=== PATIENT | female | born 1945 | race Caucasian/White ===

== ENCOUNTER → 2023-06-13 08:32 | Outpatient (REF) | payer MEDICARE, OTHER, SELFPAY ==
[2023-06-13 09:05] LABS: Urine Albumin Negative (Neg - Trace); Urine Bilirubin Negative (Negative); Urine Character Clear (Clear); Urine Glucose Negative (Negative); Urine Ketone Negative (Negative); Urine Leukocyte Trace (Negative); Urine Nitrite Negative (Negative); Urine Occult Blood Negative (Negative); Urine Urobilinogen Negative (Neg - 1+)
[2023-06-13 09:11] LABS: % Basophils 0.8 % (0-2); % Eosinophils 1.8 % (0-6); % Immature Granulocytes 0.2 % (0-0.5); % Lymphocytes 40.8 % (20.5-51.1); % Monocytes 6.5 % (1.7-9.3); % Neutrophils 49.9 % (42.2-75.2); Absolute Eosinophils 0.1 10^3/uL (0-0.7); Absolute Lymphocytes 2.1 10^3/uL (1.2-3.4); Absolute Monocytes 0.3 10^3/uL (0.1-0.6); Absolute Neutrophils 2.5 10^3/uL (1.4-6.5); Hematocrit 37.9 % (37.0-47.0); Hemoglobin 12.6 g/dL (12.0-16.0); Mean Corp Hgb Conc. 33.2 g/dL (33.0-37.0); Mean Corpuscular Hgb 30.4 pg (27.0-31.0); Mean Corpuscular Volume 91.3 fL (81.0-99.0); Mean Platelet Volume 9.2 fL (7.4-10.4); Nucleated Red Blood Cells % 0 %; Platelet Count 240 10^3/uL (130-400); Red Blood Cell Count 4.15 10^6/uL (4.20-5.40); Red Cell Dist. Width 13.4 % (11.5-14.5); White Blood Cell Count 5.1 10^3/uL (4.8-10.8)
[2023-06-13 09:16] LABS: Urine Red Blood Cell 0-2 /HPF (0-2); Urine White Cell 0-2 /HPF (0-5)
[2023-06-13 09:40] LABS: ALT (SGPT) 27 U/L (0-35); AST (SGOT) 36 U/L (14-36); Alkaline Phosphatase 71 U/L (38-126); Blood Urea Nitrogen 8 mg/dl (7-17); Calcium 8.9 mg/dl (8.4-10.2); Carbon Dioxide 27 mmol/L (22-30); Chloride 102 mmol/L (98-107); Glucose 93 mg/dl (70-99); Potassium 4.4 mmol/L (3.5-5.1); Sodium 134 mmol/L (135-145); Total Bilirubin 0.9 mg/dl (0.2-1.3); Total Protein 6.6 g/dl (6.3-8.2); eGFR > 60.00
[2023-06-13 10:04] LABS: TSH Reflex To Free T4 2.31 uIU/ml (0.47-4.68)
== END ==
LOC: REG 08:32
PROVIDERS: ATTENDING PHYSICIAN Family Medicine
DX: R39.89 Other symptoms and signs involving the genitourinary system (principal); R53.83 Other fatigue
CPT/HCPCS: 36415; 80053; 81003; 81015; 84443; 85025

== ENCOUNTER → 2023-09-21 14:18 | Outpatient (REF) | payer MEDICARE, OTHER, SELFPAY | LOC: WDC 14:18 | PROVIDERS: ATTENDING PHYSICIAN Family Medicine | DX: Z13.820 Encounter for screening for osteoporosis (principal); Z12.31 Encounter for screening mammogram for malignant neoplasm of breast; Z78.0 Asymptomatic menopausal state | CPT/HCPCS: 77063; 77067 ==

== ENCOUNTER → 2023-09-25 08:39 | Outpatient (REF) | payer MEDICARE, OTHER, SELFPAY ==
[2023-09-25 10:26] LABS: Free T3 3.11 pg/ml (2.77-5.27); Free T4 0.86 ng/dl (0.78-2.19)
[2023-09-25 10:40] LABS: Cortisol, Random 11.8 ug/dl; TSH 2.15 uIU/ml (0.47-4.68)
[2023-09-25 12:10] LABS: Glycohemoglobin (HgbA1c) 5.7 % (4.0-5.6)
[2023-09-26 06:23] LABS: Thyroglobulin Antibodies <0.9 IU/mL (0.0-4.0); Thyroid Peroxidase Ab (TPO) 0.9 IU/mL (0.0-9.0)
== END ==
LOC: REG 08:39
PROVIDERS: ATTENDING PHYSICIAN Family Medicine
DX: R53.83 Other fatigue (principal)
CPT/HCPCS: 36415; 82533; 83036; 84439; 84443; 84481; 86376; 86800

== ENCOUNTER → 2023-12-27 07:58 | Outpatient (REF) | payer MEDICARE, OTHER, SELFPAY ==
[2023-12-27 08:51] LABS: % Basophils 0.6 % (0-2); % Eosinophils 1.9 % (0-6); % Immature Granulocytes 0.2 % (0-0.5); % Lymphocytes 39.3 % (20.5-51.1); % Monocytes 6.6 % (1.7-9.3); % Neutrophils 51.4 % (42.2-75.2); Absolute Eosinophils 0.1 10^3/uL (0-0.7); Absolute Lymphocytes 1.8 10^3/uL (1.2-3.4); Absolute Monocytes 0.3 10^3/uL (0.1-0.6); Absolute Neutrophils 2.4 10^3/uL (1.4-6.5); Hematocrit 39.6 % (37.0-47.0); Hemoglobin 13.4 g/dL (12.0-16.0); Mean Corp Hgb Conc. 33.8 g/dL (33.0-37.0); Mean Corpuscular Hgb 30.5 pg (27.0-31.0); Mean Platelet Volume 8.6 fL (7.4-10.4); Nucleated Red Blood Cells % 0 %; Platelet Count 230 10^3/uL (130-400); Red Cell Dist. Width 12.7 % (11.5-14.5); Urine Albumin Negative (Neg - Trace); Urine Bilirubin Negative (Negative); Urine Character Clear (Clear); Urine Color Yellow; Urine Glucose Negative (Negative); Urine Ketone Negative (Negative); Urine Leukocyte Trace (Negative); Urine Nitrite Negative (Negative); Urine Occult Blood Negative (Negative); Urine Urobilinogen Negative (Neg - 1+); White Blood Cell Count 4.7 10^3/uL (4.8-10.8)
[2023-12-27 09:10] LABS: Urine Amorphous Seen; Urine Red Blood Cell 0-2 /HPF (0-2); Urine White Cell 0-2 /HPF (0-5)
[2023-12-27 09:11] LABS: Urine Mucus Moderate
[2023-12-27 09:28] LABS: C-Reactive Protein < 5.00 mg/L (0.0-10.00)
[2023-12-27 10:42] LABS: Erythrocyte Sed Rate 8 mm/hour (0-20)
[2023-12-27 11:11] LABS: ALT (SGPT) 22 U/L (0-35); AST (SGOT) 31 U/L (14-36); Albumin 4.5 g/dl (3.5-5.0); Alkaline Phosphatase 63 U/L (38-126); Blood Urea Nitrogen 7 mg/dl (7-17); Calcium 9.3 mg/dl (8.4-10.2); Carbon Dioxide 27 mmol/L (22-30); Chloride 99 mmol/L (98-107); Glucose 91 mg/dl (70-99); Potassium 4.1 mmol/L (3.5-5.1); Sodium 137 mmol/L (135-145); Total Bilirubin 0.8 mg/dl (0.2-1.3); eGFR > 60.00
== END ==
LOC: REG 07:58
PROVIDERS: ATTENDING PHYSICIAN Family Medicine
DX: R14.0 Abdominal distension (gaseous) (principal); K59.09 Other constipation; R63.4 Abnormal weight loss
CPT/HCPCS: 36415; 74019; 80053; 81003; 81015; 85025; 85652; 86140

== ENCOUNTER → 2023-12-28 12:31 | Outpatient (REF) | payer MEDICARE, OTHER, SELFPAY | LOC: REG 12:31 | PROVIDERS: ATTENDING PHYSICIAN Family Medicine | DX: R63.4 Abnormal weight loss (principal); R14.0 Abdominal distension (gaseous) | CPT/HCPCS: 87328; 87329 ==

== ENCOUNTER 2024-06-01 05:10 | Observation (INO) | payer MEDICARE, OTHER, SELFPAY ==
[2024-06-01] VITALS (13 sets, daily range): BP systolic 123–161; BP diastolic 68–94; PULSE 77–83; O2SAT 92
--- NOTE | 2024-06-01 01:48 | ED.GENMED ---
History of Present Illness
General
Chief Complaint: Headache
Time Seen by Provider: 06/01/24 01:38
History of Present Illness
History of Present Illness:
This pt is a 79 yr old female with a hx of ocular migraine who notes onset of gradual 'ocular migraine' at approx 8pm, characterized by 'zig zags' in visula field for 20-30 min, followed by a 'dull' h/a. As she usually does, she lay down to rest.
She awoke at 11pm,and noted that h/a was worse, on L side, frontal, withou exac/relieving factors. No radiation. Described as 'pressure'. She says for about 10 min or so, she also 'couldnt think of any words'... She denies numb/tingling, slurred
speech, trauma, fall, fever, hcange in visions, cp, sob or other complnts. (When asked, she does report mild post neck velazquez also).
Past History
Past History
ED Past Medical History: Asthma, CVA ('TIA'), GERD, Hypercholesterolemia, Psychiatric (Generalized anxiety disorder) and Other (Diverticulitis, hysterectomy, osteoporosis, Lyme disease, COVID-19 2020 and 2022, ocular migraine)
ED Past Surgical History: Appendectomy, Gynecological (Transabdominal hysterectomy), Orthopedic (ORIF right wrist), Tonsilectomy and Other (Cataract extractions bilaterally)
Social History
Tobacco: Non-smoker
Alcohol: Occasional
Drug: None
Personal:
Living: with family
Family History
Family History: Other (Mother with hypoglycemia breast cancer. Grandmother with diabetes, father with coronary disease)
Phy Exam
Physical Exam
Physical Exam:
AAO times three in nad
PERRL, EOMI, no nystagmus, no phpotophobia
mmm ,o/pc st[place]
neck supple
hrt rrr
lung cta
abd soft, nt, nd
extrem no c/c/e
psych appropriate
skin warm and dry
neuro cn 2-12 intact, nih = 0, f to n nl, motor 5/5, sens intact, visual ridley intact
Course
Orders/Labs/Results
Orders:
Orders
06/01/24 01:47
CT Head W/o Iv Contrast Urgent
Comment:
Reason For Exam: L sided h/a
Cardiac Monitoring- Treatment ONCE
0.9% Sodium Chloride 1000 ml [Nss] 1,000 ml IV BOLUS
Diphenhydramine [Benadryl] 25 mg IV NOW STA
Metoclopramide [Reglan] 10 mg IV NOW STA
06/01/24 01:49
Complete Blood Count/With Diff Urgent
06/01/24 02:37
Comprehensive Metabolic Panel Urgent
06/01/24 04:50
Admit/Transfer Patient As Directed
Co-Sign Provider:
Level of Care: Observation services
Assign to:: Telemetry
Physician / Group: Damian
Diagnosis: Migraine, r/o CVA
Reason for Telemetry: CVA/TIA
Date to Stop Telemetry: 06/04/24
Time to Stop Telemetry: 11:00
Code Status As Directed
Resuscitation Status: Full Code
PRN Pain Medication Management As Directed
May give lesser potent ordered pain med per pt: Yes
preference::
Protocol:: Medication orders for pain may be administered in a
manner that supports deferring to patient preference
when the pt is:
- Requesting an ordered lesser potent pain medication.
Least to most potent pain medications are defined
as: acetaminophen < NSAID < tramadol < opioids
(morphine, oxycodone, hydromorphone).
- Requesting a lesser dose of the same medication IF
ORDERED.
- Requesting a less intrusive route of administration
if both routes are prescribed by the provider (PO <
IV).
06/01/24 Breakfast
Regular
At Your Request: Full Participation
06/01/24 06:37
Acetaminophen [Tylenol] 650 mg PO Q4HPRN PRN
06/01/24 06:37
Consult Notification Routine
Specialty to Notify: Neurology
Date consulting provider notified: 06/01/24
Time consulting provider notified: 07:38
Notified:: Provider
NEUROLOGY CONSULT Routine
Consulting Provider: Jimmy Anderson
Was physician already notified: No
Reason for consult: Migraine, r/o CVA
Activity As Directed
Activity Level: Ambulate
With Assistance
EKG with chest pain [ECG as needed] As Directed
ECG as needed for:: Chest Pain
I/O [Intake/ Output] As Directed
Frequency: Per unit guidelines
NIH Stroke Scale As Directed
Neurological Checks As Directed
Frequency: q4h
Orthostatic Vital Signs As Directed
Orthostatic VS Frequency: BID
Pneumatic Compression Sleeves As Directed
Type: Knee high
Vital Signs As Directed
Frequency: Per unit guidelines
Oxygen Therapy [O2 Therapy] [RESP] Routine
Titrate/Wean O2 to maintain O2 sat greater than (%): 94
Ot Eval And Treat Routine
PT Consult [Pt Eval And Treat] Routine
Activity Level: Ambulate
With Assistance
Speech Therapy Eval & Treat Routine
DX Deep Vein Thrombosis Video Routine
06/01/24 06:41
Glycohemoglobin (HgbA1c) Routine
TSH Reflex To Free T4 Routine
06/01/24 08:00
Aspirin Chewable [Low Strength Aspirin] 81 mg PO DAILY
06/04/24 11:00
DC Protocol for Telemetry ONCE
Abnormal Lab Results
06/01/24
02:37
Creatinine 0.5 L mg/dL
(0.6-1.0)
Glucose 108 H mg/dl
(70-99)
Calcium 7.9 L mg/dl
(8.4-10.2)
Total Protein 6.1 L g/dl
(6.3-8.2)
06/01/24 01:49
06/01/24 02:37
Vital Signs
Initial and Last Documented VS:
Initial Vital Signs
Temp Pulse Resp BP Pulse Ox
99.3 F 83 20 161/84 100
06/01/24 01:36 06/01/24 01:36 06/01/24 01:36 06/01/24 01:36 06/01/24 01:36
Last Documented Vital Signs
Temp Pulse Resp BP Pulse Ox
98.5 F 80 18 130/68 99
06/01/24 15:00 06/01/24 13:00 06/01/24 15:00 06/01/24 15:00 06/01/24 15:00
*Critical Care Note
Total Time (30-74mins, 75-104mins- exclusive of procedures): Not Applicable
Update Note
Update Note:
Patient presents to the Emergency Department with headache nausea and vomiting
Number and Complexity of Problems Addressed at the Encounter
� Chronic conditions affecting care:
� Acute Exacerbation and/or Progression of Chronic Illness:
� Differential Diagnosis includes: But not limited to migraine, tension headache, intracranial bleed, etc. etc. etc.
Amount and/or Complexity of Data to be Reviewed and Analyzed
� I performed an independent evaluation of and my interpretation is:
EKG:
CT: Read by vision, noncontrast head CT NAD
Xrays:
Laboratory Studies:
Other:
� Review of other/old records reveals:
� Clinical information was obtained by an independent historian: who is bedside
� Prescriptions/Medications Considered but not given:
� Further testing considered but not performed:
Risk of Complications and/or Morbidity or Mortality of Patient Management
� Social determinants of health affecting care:
� Discussion with other providers (PCP, Hospitalists, Consultants, etc):
� Escalation of care including admission/observation vs risk of discharge considered:346am several reassessments h/a improved but not fully resolved, no other assoc sxs at this time. I recommended a CTA for further eval, she
declines. Given aphasia, confusion (all resolved), will need admission, neuro c/s, likely MRI in AM.
ED Attending Note
-
Portions of this chart may have been created with voice recognition software.� Occasional wrong word or��sound alike� substitutions may have occurred due to the inherent limitations of voice recognition software.
Discharge Plan
Departure
Patient Disposition: Admit
Date of Disposition: 06/01/24
Time of Disposition: 03:47
Admit to: Telemetry
Admit to doctor: damian
Presentation/result/management discussed w/ accepting MD/DO: Hospitalist
Condition: Fair
Discharge Problem:
Headache
Interventions
Interventions:
*Risk Screen - Suicide Last Done: 06/01/24 09:50
*General Assessment Last Done: 06/01/24 01:36
*Neglect/Abuse Screening Last Done: 06/01/24 01:36
ED- Fall Risk Assessment Last Done: 06/01/24 02:48
*ED COVID-19 Vaccine History Last Done: 06/01/24 01:36
ED- Neurological Assessment Last Done: 06/01/24 03:51
[2024-06-01] MEDS: NSS 1000 IV (01:57)
[2024-06-01] MEDS: REGLAN 10 MG IV (01:58)
[2024-06-01] MEDS: BENADRYL 25 MG IV (02:00)
[2024-06-01 02:04] LABS: % Basophils 0.6 % (0-2); % Eosinophils 1.2 % (0-6); % Immature Granulocytes 0.1 % (0-0.5); % Lymphocytes 35.6 % (20.5-51.1); % Monocytes 6.7 % (1.7-9.3); % Neutrophils 55.8 % (42.2-75.2); Absolute Eosinophils 0.1 10^3/uL (0-0.7); Absolute Lymphocytes 2.4 10^3/uL (1.2-3.4); Absolute Monocytes 0.5 10^3/uL (0.1-0.6); Absolute Neutrophils 3.7 10^3/uL (1.4-6.5); Hematocrit 38.5 % (37.0-47.0); Mean Corp Hgb Conc. 33.8 g/dL (33.0-37.0); Mean Corpuscular Hgb 30.6 pg (27.0-31.0); Mean Corpuscular Volume 90.6 fL (81.0-99.0); Nucleated Red Blood Cells % 0 %; Platelet Count 228 10^3/uL (130-400); Red Blood Cell Count 4.25 10^6/uL (4.20-5.40); Red Cell Dist. Width 13.2 % (11.5-14.5); White Blood Cell Count 6.7 10^3/uL (4.8-10.8)
[2024-06-01 03:37] LABS: ALT (SGPT) 18 U/L (0-35); AST (SGOT) 29 U/L (14-36); Albumin 3.7 g/dl (3.5-5.0); Alkaline Phosphatase 63 U/L (38-126); Blood Urea Nitrogen 11 mg/dl (7-17); Calcium 7.9 mg/dl (8.4-10.2); Carbon Dioxide 23 mmol/L (22-30); Chloride 104 mmol/L (98-107); Estimated Creatinine Clearance 64 ml/min; Glucose 108 mg/dl (70-99); Potassium 3.7 mmol/L (3.5-5.1); Sodium 137 mmol/L (135-145); Total Bilirubin 0.7 mg/dl (0.2-1.3); Total Protein 6.1 g/dl (6.3-8.2); eGFR > 60.00
--- NOTE | 2024-06-01 04:53 | HPS.HSE ---
Family Physician
-
Family Physician: NOT KNOW UNKNOWN - PT DOES
Chief Complaint
-
Headache, Speech difficulty / confusion
History of Present Illness
Patient is a 79y F with PMH significant for migraine headaches, anxiety and IBS who presents to ED complaining of speech difficulty, headache and confusion. Patient states that she developed a typical ocular migraine this evening around 8:30 PM
with her usual 'blind spots' and 'zig zags of light'. She went to bed and was able to fall asleep. She woke around 11 PM with left-sided headache and posterior neck pain. In addition, she found that she had difficulty speaking. She could not put
a sentence together / think of appropriate words. Her grandson is living with her and she could not think of his name.
Patient presented to the ED for further evaluation.
Her symptoms have gradually improved since that time and she currently has no residual symptoms except for the headache.
Patient had a similar episode in 02/2023. CT and CTA were unremarkable at that time and symptoms were attributed to a migraine syndrome.
Propranolol was recommended at that time. Patient notes that she takes no prescription medications. She takes multiple supplements / holistic remedies, but no Rx drugs.
Patient states that her migraines are quite irregular. She can have them every day for a month and then none at all for several months. Her last typical episode was a few weeks ago.
Medical History
Past Medical History
Past Medical History: Reports Other
Additional Past Medical History:
Migraine Headaches
Anxiety / Depression
Diverticular Disease
IBS
Asthma
GERD
Past Surgical History: Reports Other
Additional Past Surgical History:
Hysterectomy
Right Wrist ORIF with Hardware
Social History
Tobacco: Former Smoker (Quit smoking at age 33. Approx 10 pack years total use.)
Alcohol: Occasional
Drug: None
Family History
Family History: Other (Mother: Breast Cancer Father: CAD)
Allergies / Home Medications
Allergies reflects when Allergies were last updated in [employer].
Home Medications with original date entered in [employer]
Allergy/Medication List:
Allergies
Allergy/AdvReac Type Severity Reaction Status Date / Time
Cephalosporins Allergy Blister on Verified 06/01/24 01:36
lip
meperidine HCl [From Demerol] Allergy 'Sensitivity Verified 06/01/24 01:36
- it's
stronger
on me than
other
people'
Penicillins Allergy Swollen Verified 06/01/24 01:36
lip, tight
chest, rash
Sulfa (Sulfonamide Allergy blistering Verified 06/01/24 01:36
Antibiotics)
tetracycline [Tetracycline] Allergy Rash Verified 06/01/24 01:36
'tiny bit
swelling
in my lip'
dust & cats Allergy asthma Uncoded 06/01/24 01:36
symptoms
EPIDURAL Allergy SENSITIVITY Uncoded 06/01/24 01:36
?
tarun Allergy numb lips Uncoded 06/01/24 01:36
msg Allergy trouble Uncoded 06/01/24 01:36
breathing
Home Medications
MULTIVITAMINS W-MINERALS 1 tab PO DAILY 06/15/10
Gentle Woman's Laxative 1 tab PO DAILY 06/01/24
Senokot 1 tab PO DAILY PRN constipation 06/01/24
Smooth Move 1 dose PO DAILY PRN constipation 06/01/24
slippery elm bark 1 tab PO DAILY PRN constipation 06/01/24
Review of Systems
-
History Source: Patient
A 12 point ROS was completed and negative except as noted: Yes
Constitutional: Denies Fever or Chills
Respiratory: Denies Cough or Trouble Breathing
Cardiac: Denies Chest Pain or Palpitations
Abdomen/GI: Denies Abdominal Pain, Nausea, Vomiting or Diarrhea
: Denies Dysuria or Frequency
Musculoskeletal: Denies Joint Pain or Edema
Neurological: Reports Headache and Other (Vision changes/ speech difficulty); Denies Dizzy, Weakness or Numbness
Psych: Denies Depression or Anxiety
Physical Exam
Vital Signs
Vital Signs
Temp Pulse Resp BP Pulse Ox
99.3 F 88 13 151/80 97
06/01/24 01:36 06/01/24 02:00 06/01/24 02:00 06/01/24 02:00 06/01/24 02:48
Physical Exam
General: Other (79y F in no distress.)
HEENT: Moist mucous membranes and PERRLA
Respiratory: Clear; No Wheezes, Rales or Rhonchi
Cardiac: S1/S2 and Regular Rhythm; No Murmur
GI: Soft, Non Tender, Non Distended and Normal Bowel Sounds
Musculoskeletal: No Clubbing, No Cyanosis and No Edema
Neuro: AO x 3 and Nonfocal/grossly intact
Laboratory Results
-
06/01/24 01:49
06/01/24 02:37
Laboratory Results
Total Bilirubin 0.7 mg/dl (0.2-1.3) 06/01/24 02:37
AST 29 U/L (14-36) 06/01/24 02:37
ALT 18 U/L (0-35) 06/01/24 02:37
Alkaline Phosphatase 63 U/L (38-126) 06/01/24 02:37
Impression/Plan
-
A/P: Patient is a 79y F with PMH significant for migraines and anxiety who presents to ED complaining of headache, word finding difficulty and confusion.
Headache
Aphasia
Confusion
- Observe overnight for further evaluation and treatment.
- Symptoms are identical to those from 02/2023 episode and suspect this also represents migraine syndrome.
- Follow for any changes in neuro exam, recurrent symptoms, increased headache, etc.
- Neuro eval / MRI in AM.
- ASA daily for now pending MRI results.
- Would again consider migraine prophylaxis; however, patient seems reluctant to consider Rx medications.
Elevated BP
- Allow degree of hypertension for initial 24 hours.
- Follow for improvement prior to discharge.
- Consider initiation of antihypertensive medication if needed for normotension.
DVT Prophylaxis: SCDs
Code Status: Full
[2024-06-01 07:39] LABS: TSH Reflex To Free T4 2.36 uIU/ml (0.47-4.68)
--- NOTE | 2024-06-01 08:31 | CON.NEURO ---
Neuro Assessment/Plan
Assessment
Recurrent neurological symptoms in the face of patient with known migraine with aura
Also experiencing weight loss and chronic dysphagia
MRI of brain again fails to demonstrate acute ischemic lesion
Plan
Patient should be provided with prochlorperazine as immediate therapy for rescue, not needing routine preventative medication for headache based on realtively few headaches per month
Consideration for the use of rimegepant as future rescue therapy should be given
outpatient speech therapy due to dysphagia
Will follow as needed
Consultation
Order
Date of Consultation: 06/01/24
Requesting Provider: Hospitalist
Reason for Consult: Headache
Subjective/Objective
Subjective Data
Date of Service: June 01, 2024
Date of Consultation: 03/18/23
Requesting Provider: Emergency department provider
Reason for Consult: Aphasia
Right-Handed
Patient reportedly experienced a 10-minute episode of difficulty with word finding and had associated confusion which spontaneously improved. The event took place on March 16, 2023. Others with the patient were told that the patient did not feel
that she was thinking clearly. Patient did have anxiety at that time and the event was followed by a mild headache. The patient did awaken with a headache at 0600 hrs. that day.
Patient did not seek medical attention at that time. This AM, patient again felt that speech was slightly worse than previously. Patient is experiencing a headache over the right-side of head today.
Patient was previously evaluated by a neurologist at this hospital in June 2018 due to recurrent headaches associated with scotoma lasting for approximately 5 minutes and followed by a sense of vertigo. The patient at that time was diagnosed with
migraine with aura. Headaches are usually bifrontal. Headaches are every 2-3 months, usually for two days.
IMPRESSIONS/RECOMMENDATIONS:
Abrupt change in speech in a patient with known migraine with aura as well as vestibular migraine
MRI of brain 2010 unremarkable; CT head June 2018 unremarkable; CT head September 2018 unremarkable; MRI brain December 2020 unremarkable
Most likely the events are migrainous with the CT of head not demonstrating a new lesion days after onset.
Patient was not a candidate for either tenecteplase or intra-arterial thrombectomy as symptoms are not clearly related to stroke and NIH stroke scale less than 6
o Start Propranolol 10 mg at bedtime, due to likely migraine with aura and need for preventative therapy
o OK to use single-load of ASA and Clopidogrel, then discontinue both if no significant narrowing
o Monitor BPs
Patient returned to ED with speech difficulty, severe headache, nausea, dizziness, emesis, and confusion.
Patient states that she developed a typical 'ocular migraine' at 8:30 PM with her usual 'blind spots' and 'zig zags of light.'
She awoke at 11 PM with left-temporal headache, posterior neck pain, and difficulty speaking. She could not put a sentence together / think of appropriate words. Her grandson is living with her and she could not think of his name.
Type of discomfort was squeezing. Intensity was 9/10. Current intensity is 3/10. Photophobia, and phonophobia.
Usual monthly headaches 2x/.
Objective Data
Vital Signs
Temp Pulse Resp BP Pulse Ox
37.4 C 80 15 139/77 97
06/01/24 01:36 06/01/24 06:30 06/01/24 06:30 06/01/24 04:00 06/01/24 03:15
Lab Results
06/01/24 01:49
06/01/24 02:37
Sodium 137 mmol/L (135-145) 06/01/24 02:37
Potassium 3.7 mmol/L (3.5-5.1) 06/01/24 02:37
BUN 11 mg/dl (7-17) 06/01/24 02:37
Glucose 108 mg/dl (70-99) H 06/01/24 02:37
Calcium 7.9 mg/dl (8.4-10.2) L 06/01/24 02:37
Patient Allergies
Cephalosporins Allergy (Verified 06/01/24:36)
Blister on lip
meperidine HCl [From Demerol] Allergy (Verified 06/01/24:36)
'Sensitivity - it's stronger on me than other people'
Penicillins Allergy (Verified 06/01/24:36)
Swollen lip, tight chest, rash
Sulfa (Sulfonamide Antibiotics) Allergy (Verified 06/01/24:36)
blistering
tetracycline [Tetracycline] Allergy (Verified 06/01/24:36)
Rash 'tiny bit swelling in my lip'
dust & cats Allergy (Uncoded 06/01/24:36)
asthma symptoms
EPIDURAL Allergy (Uncoded 06/01/24:36)
SENSITIVITY?
tarun Allergy (Uncoded 06/01/24:36)
numb lips
msg Allergy (Uncoded 06/01/24:36)
trouble breathing
Review of Systems
-
History Source: Patient
All other systems: Reviewed and negative
EENT: Swallowing Difficulty; Negative Decreased Vision
Respiratory: Negative Trouble Breathing
Cardiac: Negative Chest Pain
Abdomen/GI: Constipated; Negative Incontinence of Stool
Genitourinary: Negative Incontinence
Musculoskeletal: Neck Pain; Negative Back Pain
Neuro: Headache; Negative Dizzy
Physical Exam
-
General: No Apparent Distress, Cachectic and Appears Stated Age
Eyes: OU Absent Papilledema, Able to visualize OU, Round OU, [place] Conjunctivae and No Ptosis
HEENT: Anicteric and Moist Mucous Membranes
Neck: Full Range of Motion
Respiratory: No Dyspnea
Cardiac: No JVD
GI: Non-distended
Skin: Unremarkable
Extremities: No Clubbing, No Cyanosis and No Edema
Psych: Negative Intact Judgement/Insight
Extended Neurological Exam
Mood & Affect: Anxious
Attention Span & Concentration: Awake, Alert, Interactive and No Difficulty with 2 Step Request
Memory: Unremarkable
Tremor: Hand Tremor Absent and Head Tremor Absent
Speech: Quality Unremarkable and Quantity Unremarkable
Cranial Nerve II: Left Eye: Pupillary Reactivity Unremarkable, Pupillary Size Unremarkable and Visual Hunter Intact
Cranial Nerve II: Right Eye: Pupillary Reactivity Unremarkable, Pupillary Size Unremarkable and Visual Hunter Intact
Cranial Nerves III, IV, : Extraocular Movement: Extraocular Movement Full in all Directions
Cranial Nerve VII: Facial Symmetry: Normal Facial Symmetry
Cranial Nerve VIII: Hearing: Unremarkable Hearing to Normal Conversational Volume
Cranial Nerves IX, X: Palate Movement: Palate Elevation Symmetric
Cranial Nerve XI: Shoulder Shrug: Unremarkable
Cranial Nerve XII: Tongue Protusion: Midline
Muscle Strength, Overall: Full Throughout
Muscle Bulk & Tone: Bulk Unremarkable and Tone Unremarkable
Pronator Drift: No Drift in Upper Extremities and No Drift in Lower Extremities
Deep Tendon Reflexes: Trace Throughout
Touch Sensation: Unremarkable
Coordination: [id number] Testing Unremarkable
Babinski Sign: Absent Bilaterally
Data Reviewed
-
CT Head: Report Reviewed
MRI Head: Image Reviewed
Labs: Report Reviewed
Lipid Profile: Ordered
Reviewed with: Patient
Old Records: Summarized
Medications
-
Active Medications
Generic Name Dose Route Start Last Admin
Trade Name Freq PRN Reason Stop Dose Admin
Acetaminophen 650 mg 06/01/24 06:37
Acetaminophen 325 Mg Tablet PO 06/29/24 06:36
Q4HPRN PRN
Mild Pain / Temp > 101
Aspirin 81 mg 06/01/24 08:00
Aspirin 81 Mg Chewable Tablet PO 06/29/24 07:59
DAILY EMI
Home Medications
�Medication �Instructions �Recorded
MULTIVITAMINS W-MINERALS 1 tab PO DAILY 06/15/10
Gentle Woman's Laxative 1 tab PO DAILY 06/01/24
Senokot 1 tab PO DAILY PRN constipation 06/01/24
Smooth Move 1 dose PO DAILY PRN constipation 06/01/24
slippery elm bark 1 tab PO DAILY PRN constipation 06/01/24
Past History
Past History
ED Past Medical History: Asthma, CVA ('TIA'), GERD, Hypercholesterolemia, Psychiatric (Generalized anxiety disorder), Other (Diverticulitis, osteoporosis, Lyme disease, COVID-19 2020 and 2022, migraine with aura, partial paralysis of vocal cords)
and Other (dysphagia)
ED Past Surgical History: Appendectomy, Gynecological (Transabdominal hysterectomy), Orthopedic (ORIF right wrist), Tonsilectomy and Other (Cataract extractions bilaterally)
Social History
Tobacco: Non-smoker
Alcohol: Occasional
Drug: None
Personal:
Living: with family
Family History
Family History: Other (Mother with hypoglycemia breast cancer. Grandmother with diabetes, father with coronary disease)
[2024-06-01] MEDS: MAXALT MLT (ORALLY DISINTEGRATING) 10 MG PO (10:00)
[2024-06-01 10:26] LABS: Glycohemoglobin (HgbA1c) 5.3 % (4.0-5.6)
--- NOTE | 2024-06-01 11:46 | PTOTSP ---
Speech therapy
Presentation: Patient expressed she experienced dysarthric (slurred) speech and expressive aphasia (word finding difficulty) on 05/31 which has improved to almost baseline since her migraine has improved. Patient stated she experienced similar
symptoms the last time she had an occular migraine which has improved back to baseline once migraine has resolved.
Swallowing Function: PROPRIETARY TRADER observed patient with several sips (straw) of thin liquids and bites of puree and cracker in which patient appeared to tolerate as she did not exhibit any overt clinical s/sx of aspiration or difficulty with mastication/
manipulation. Patient expressed discomfort (getting stuck) when taking larger pills which improves when she takes her medications with food and liquids. PROPRIETARY TRADER explained the use of puree solids to improve A-P transit of larger medications. Patient
verbalized an understanding and expressed interest in this compensatory strategy. Patient denied any dysphagia complaints with meals. Given the above, recommend continuation of current diet with consideration of outpatient speech therapy for speech
and dysphagia complaints. Patient verbalized an understanding.
Recommendations:
1) Continuation of regular consistency solids and thin liquids
2) Consideration of further speech and language assessment
3) Medication in puree
4) Consideration of outpatient speech services for dysphagia complaints
Plan: PROPRIETARY TRADER will continue to follow for speech and dysphagia complaints; pending hospitalization. If discharged today (as anticipated), consider outpatient services.
--- NOTE | 2024-06-01 19:29 | W.DCSUMMARY ---
Discharge Summary
Discharge Data
Date of Admission: 06/01/24
Date of Discharge: 06/01/24
Total time spent discharging patient (in min): 35
-
Pending Results: No
Hospital Course
The patient is a 79y F with PMH significant for migraine headaches, anxiety and IBS who presents to ED complaining of speech difficulty, headache and confusion. Patient states that she developed a typical ocular migraine this evening around 8:30
PM with her usual 'blind spots' and 'zig zags of light'. She went to bed and was able to fall asleep. She woke around 11 PM with left-sided headache and posterior neck pain. In addition, she found that she had difficulty speaking. She could not
put a sentence together / think of appropriate words. Her grandson is living with her and she could not think of his name.
Patient presented to the ED for further evaluation. Her symptoms improved since that time and she currently has no residual symptoms except for the headache.
Of note, she had a similar episode in 02/2023. CT and CTA were unremarkable at that time and symptoms were attributed to a migraine syndrome.
Propranolol was recommended at that time. Patient notes that she takes no prescription medications. She takes multiple supplements / holistic remedies, but no Rx drugs.
Patient states that her migraines are quite irregular. She can have them every day for a month and then none at all for several months. Her last typical episode was a few weeks ago.
She was admitted to the hospital due to concern for possible TIA vs CVA vs migraine syndrome associated with dysphasia/headache. MRI of brain again negative for acute ischemic lesion. She was seen by Neurology, who suspected recurrent neurological
symptoms in the face of known migraine with aura, and recommended she start taking Prochlorperazine immediately with the start of a migraine headache, as needed. She was also advised to discuss Rimegepant with her primary care doctor if migraines
are increasing/more per month, as per Neurology recommendations. She had a speech evaluation, who noted normal swallowing of solids and thin liquids, however recommended the patient follow-up with Speech therapy outpatient due to mild dysarthria and
expressive aphasia (after discussing with the patient, she notes she had outpatient ENT workup and has vocal cord pathology that may also be contributing to intermittent symptoms).
Neurology recommended the patient stable for discharge. She was discharged to home in stable and improved condition, with f/u with her primary planned.
Discharge Plan
-
Patient Disposition: Home (Routine Discharge)
Discharge Diagnosis/Procedures: Migraine with aura and recurrent neurological symptoms, resolved
Condition: Good
Diet: No restrictions
Activity: No restrictions
Additional Activity: Take your blood pressure nightly and record for one week; show this to your primary care doctor
Driving Restrictions: As prior to admission
Bathing Restrictions: None
Other Services: ST
Specialty Instructions: Weigh Daily- Call MD for wt gain/loss 3 lbs overnight/5 lbs in 1 week
Referrals:
UNKNOWN - PT DOES,NOT KNOW [Family Provider] -
Additional Discharge Medication Instructions: Start taking Prochlorperazine immediately with the start of a migraine headache, as needed. Discuss Rimegepant with your primary care doctor if migraines are increasing/more per month.
Prescriptions:
New
prochlorperazine maleate 5 mg Tablet
10 mg PO ONCE PRN (Reason: migraine headache) Qty: 10 0RF
Rx Instructions:
Take 10 mg once immediately at the onset of a migraine headache
Continued
therapeutic multivitamin Tablet
1 tab PO DAILY
slippery elm bark 400 mg Capsule
400 mg PO DAILYPRN PRN (Reason: CONSTIPATION)
sennosides [Senokot] 8.6 mg Tablet
8.6 mg PO BIDPRN PRN (Reason: CONSTIPATION)
Smooth Move
1 dose PO DAILY PRN (Reason: constipation)
Discontinued
Gentle Woman's Laxative 65-100 mg Tablet
1 tab PO DAILY
Discharge Orders:
Discharge Patient (As Directed); Ordered 06/01/24
Ordered By: Naomi Maciel
Discharge Date and Time
Discharge Date/Time: 06/01/24 15:43
Print Language: NEPALI
== END 2024-06-01 15:43 | disposition home or self-care (01) ==
LOC: ED 05:10
PROVIDERS: ADMITTING PHYSICIAN Hospitalist; ATTENDING PHYSICIAN Internal Medicine; CONSULT PHYSICIAN Psychiatry & Neurology Neurology; EMERGENCY PHYSICIAN Emergency Medicine
DX: G43.109 Migraine with aura, not intractable, without status migrainosus (principal); M81.0 Age-related osteoporosis without current pathological fracture; R47.01 Aphasia; I10 Essential (primary) hypertension; R13.10 Dysphagia, unspecified; R29.818 Other symptoms and signs involving the nervous system; R42 Dizziness and giddiness; E78.00 Pure hypercholesterolemia, unspecified; K21.9 Gastro-esophageal reflux disease without esophagitis; F41.1 Generalized anxiety disorder; J45.909 Unspecified asthma, uncomplicated; R11.2 Nausea with vomiting, unspecified; R41.0 Disorientation, unspecified; K58.9 Irritable bowel syndrome, unspecified; M54.2 Cervicalgia; F32.A Depression, unspecified; Z90.49 Acquired absence of other specified parts of digestive tract; Z80.3 Family history of malignant neoplasm of breast; Z83.3 Family history of diabetes mellitus; Z82.49 Family history of ischemic heart disease and other diseases of the circulatory system; Z90.710 Acquired absence of both cervix and uterus; Z86.16 Personal history of COVID-19; Z86.73 Personal history of transient ischemic attack (TIA), and cerebral infarction without residual deficits; Z87.891 Personal history of nicotine dependence; Z88.6 Allergy status to analgesic agent; Z88.1 Allergy status to other antibiotic agents; Z88.5 Allergy status to narcotic agent; Z88.0 Allergy status to penicillin; Z88.2 Allergy status to sulfonamides; Z88.8 Allergy status to other drugs, medicaments and biological substances; Z91.02 Food additives allergy status; Z91.018 Allergy to other foods
CPT/HCPCS: 70450; 70551; 80053; 83036; 84443; 85025; 92610; 96361; 96374; 96375; 97162; 97166; 99284; G0378